=== PATIENT | male | born 1955 | race Caucasian/White ===

== ENCOUNTER → 2016-07-13 | Outpatient (CLI) | payer MEDICARE ==
[~2016-07-13] MED LIST: ASPI-558 PO; BISO1TAB30 PO; ESCI20TA22 PO; FENO160T9 PO; GADOBUTROL 10mMol/10ml INJECTION IV ONE; INSU3INS5 SQ; LISI30TA36 PO; METF-206 PO; MULT1CAP47 PO; NIAC500T68 PO; PIOG15TA; ROSU40TA8 PO; SALINE FLUSH 10ml SYRINGE ONE; TELM20TA2 PO
--- NOTE | 2016-07-13 11:48 | DI ---
Indication: ITS.REASON: M54.16 RADICULOPATHY; M54.5 LOW BACK PAIN PROCEDURE: MRI LUMBAR SPINE W/WO CONTRAST: Encounter: Initial Comparison: MRI lumbar spine dated September 13, 2014 Technique: Multiplanar multisequence MR imaging of the lumbar spine was performed with and without contrast. Contrast: 9.5 mL Gadavist Findings: Alignment of the lumbar spine is stable. No acute fracture. Multiple Schmorl's nodes are again seen along with a hemangioma in the L1 vertebra. Conus medullaris terminates normally at L1. The paraspinal soft tissues show a left renal cysts. Segmental analysis: L1-L2: Normal L2-L3: Normal L3-L4: Normal L4-L5: Interval enlargement of the large central disk protrusion with degenerative facet disease causing severe compression of the thecal sac and severe central canal stenosis. This impinges upon the traversing nerve roots and results in severe bilateral neural foraminal stenosis with impingement on both exiting L4 nerve roots. Evidence of prior laminectomy. L5-S1: Normal Postcontrast images show a new rounded area of enhancement adjacent to the exiting left L4 nerve root adjacent to the disk protrusion. This is best seen on axial image #25. Enhancement surrounds a tubular structure measuring up to 1 cm in diameter. Based on the T2 images and comparison study this tubular structure may represent the L3 nerve root from the level above. Impression: 1. 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 2. New area of enhancement which appears to be centered around the left L3 nerve root as it traverses past the L4-L5 disk space. .
== END ==
LOC: IMA 09:22
PROVIDERS: ATTEND Nurse Practitioner
DX: M51.16 Intervertebral disc disorders with radiculopathy, lumbar region (principal)
CPT/HCPCS: 72158; A9585